=== PATIENT | male | born 1950 | race Caucasian/White ===

== ENCOUNTER 2017-03-27 16:12 | Emergency (ER) | payer OTHER ==
[~2017-03-27] VITALS: Ht 175.3 cm; Wt 109.8 kg
[~2017-03-27 16:12] MED LIST: ASPIRIN EC325 MG PO; ATENOLOL25 MG PO; COMBIVENT RESPIM4 GM INH; DOXYCYCLINE HY100 MG PO; IRON325 M1 PO; LEVOFLOXACIN500 MG PO; LISINOPRIL10 MG PO; METFORMIN HCL500 MG PO; OMEPRAZOLE20 MG PO; PREDNISONE20 MG PO; SIMVASTATIN40 MG PO; TAMSULOSIN HCL0.4 MG PO; WELLBUTRIN SR150 MG PO
[2017-03-27] MEDS ORDERED: ZITHROMAX250 MG PO (17:37)
--- NOTE | 2017-03-28 17:35 | EKG ---
[facility] [address] [facility] [place] [address] Signed Atrial fibrillation Rightward axis Abnormal ECG No previous ECGs available Confirmed by ANKIT HAYES MD ([id number]) on 03/28/2017 5:35:22 PM Electronically Signed By: ANKIT HAYES MD 03/28/17 1735 PATIENT NAME: FREDDY BLACKWELL Electrocardiogram DATE OF : 46 PHYSICIAN: ANKIT HAYES MD REPORT #: [id number] REPORT IS CONFIDENTIAL AND NOT TO BE RELEASED WITHOUT AUTHORIZATION
== END 2017-03-27 17:50 | disposition home or self-care (01) ==
LOC: ED 16:12
DX: R07.2 Precordial pain (principal); I11.0 Hypertensive heart disease with heart failure; I50.9 Heart failure, unspecified; I48.91 Unspecified atrial fibrillation; E11.9 Type 2 diabetes mellitus without complications; F17.200 Nicotine dependence, unspecified, uncomplicated; Z79.84 Long term (current) use of oral hypoglycemic drugs; Z90.49 Acquired absence of other specified parts of digestive tract; Z79.899 Other long term (current) drug therapy; Z79.82 Long term (current) use of aspirin
CPT/HCPCS: 71010; 80053; 83735; 83880; 84484; 85025; 93005; 93010; 94640; 99284

== ENCOUNTER 2017-07-20 20:37 | Observation (INO) | payer MEDICARE ==
[~2017-07-20] VITALS: Ht 175.3 cm; Wt 108.4 kg
[~2017-07-20 20:37] MED LIST changes: +ZITHROMAX250 MG PO
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
--- NOTE | 2017-07-21 00:53 | NUR ---
pt admitted at 2345 from ed. pt unconsious, hx assessment completed from previous records and family giving answers. Pt no pupil response, unconscious. moist, agonal breathing. Pt was incontinent of bowel, cleansed, excoriated andrew area present, excoriated areas noted under breast and skin folds. Mouth care done. SL patent. f/c in place, patent, draining clear yellow urine. Family in r
--- NOTE | 2017-07-21 01:49 | NUR ---
RECEIVED REPORT FROM SEWER PIPE OFFBEARER AT 0130. SCOPALAMIN PATCH IS BEHIND RIGHT EAR. ATROPIN WILL BE BROUGHT TO ME BY [employer] DEVELOPER. PT SEEMS COMFORTABLE AT THIS TIME.
--- NOTE | 2017-07-21 02:55 | NUR ---
ATROPIN SL 2DROPS AND ATIVAN IV 2MG HAS BEEN GIVEN. PT IS RESTING COMFORTABLE AGAIN. FAMILY IS AT BEDSIDE.
--- NOTE | 2017-07-21 04:19 | NUR ---
8MG OF MORPHINE IV WAS GIVEN, PT RR WAS 30 AND PT HAD DYSPNEA. WILL CONTINUE TO MONITOR.
--- NOTE | 2017-07-21 06:05 | NUR ---
DYSPNEA HAS NOT SUBSIDED SO FAR. PT HAS RECEIVED 16MG OF MORPHINE, 2 DROPS OF SL ATROPIN AND ATIVAN IV PER ORDER. FAMILY IS STILL AT BEDSIDE. TURNING, SUCTIONING AND MOUTH CARE HAVE BEEN PROVIDED SEVERAL TIMES THIS SHIFT.
--- NOTE | 2017-07-21 07:19 | NUR ---
RECIEVED BEDSIDE REPORT FROM PARAMJIT WOODS. PT RESTING, APPEARS COMFORTABLE, GURGLY SOUNDING. SUCTION AT BEDSIDE. FAMILY AT BEDSIDE. Q 2HR TURNS, ON ODD HRS.
--- NOTE | 2017-07-21 11:42 | NUR ---
ORAL SUCTION PREFORMED, SMALL AMOUNT OF SECRETIONS REMOVED. ORAL CARE DONE, LIP BALM APPLIED. PT NON-RESPONSIVE. FAMILY AT BEDSIDE. MS GIVEN, RR 33.
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
--- NOTE | 2017-07-21 13:43 | NUR ---
PT STILL VERY GURGGLY. SUCTIONED PT FOR MODERATE AMT. PRN ATROPINE DROPS GIVEN. FAMILY AT BEDSIDE.
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
--- NOTE | 2017-07-21 17:31 | NUR ---
COMFORT MEASURES ONLY. PRN MORPHINE FOR TACHYPENA, PAIN GIVEN X5. PRN ATROPINE GIVEN X3 FOR EXCESSIVE SECRETIONS. SUCTIONED MULTIPLE TIMES, UNABLE TO CLEAR ALL SECRETIONS, VERY GURGGLEY. Q 2 HRS TURNS/REPOSITIONS. NO GAG/SWALLOW REFLEX.
[2017-07-21] MEDS ORDERED: TYLENOL325 MG PO (17:32)
--- NOTE | 2017-07-21 18:16 | NUR ---
PT AT 1809. MD NOTIFIED, ASSOCIATE MEDIA DIRECTOR NOTIFIED, PASTORIAL CARE NOTIFIED. FAMILY IN ROOM.
--- NOTE | 2017-07-21 20:13 | NUR ---
ASSISTED [facility] [facility] [employer] [facility] TO [facility] PT NOW OFF FLOOR.
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
--- NOTE | 2017-07-21 20:25 | NUR ---
body removed from facility via stretcher, acompanied by pastor Theodore and [facility] staff
--- NOTE | 2017-07-21 22:59 | EKG ---
[facility] [address] [facility] [facility] [place] [address] Signed Atrial fibrillation with rapid ventricular response Right axis deviation T wave abnormality, consider inferior ischemia Abnormal ECG When compared with ECG of 27-MAR-2017 16:16, T wave inversion now evident in Inferior leads Confirmed by ANKIT HAYES MD ([id number]) on 07/21/2017 10:59:06 PM Electronically Signed By: ANKIT HAYES MD 07/21/17 2259 PATIENT NAME: FREDDY BLACKWELL Electrocardiogram DATE OF : 46 PHYSICIAN: ANKIT HAYES MD REPORT #: [id number] REPORT IS CONFIDENTIAL AND NOT TO BE RELEASED WITHOUT AUTHORIZATION
== END 2017-07-21 18:09 ==
LOC: ED 20:37 → MS 20:38
PROVIDERS: ADMIT Internal Medicine
DX: I62.01 Nontraumatic acute subdural hemorrhage (principal); R40.20 Unspecified coma; I62.03 Nontraumatic chronic subdural hemorrhage; Z51.5 Encounter for palliative care; F17.200 Nicotine dependence, unspecified, uncomplicated; R40.2432 Glasgow coma scale score 3-8, at arrival to emergency department; G93.6 Cerebral edema; E78.5 Hyperlipidemia, unspecified; I38 Endocarditis, valve unspecified; N40.0 Benign prostatic hyperplasia without lower urinary tract symptoms; I48.91 Unspecified atrial fibrillation; I10 Essential (primary) hypertension; E11.9 Type 2 diabetes mellitus without complications; J43.9 Emphysema, unspecified; Z66 Do not resuscitate; Z86.19 Personal history of other infectious and parasitic diseases; Z79.2 Long term (current) use of antibiotics; Z79.899 Other long term (current) drug therapy; Z79.82 Long term (current) use of aspirin; Z79.84 Long term (current) use of oral hypoglycemic drugs
CPT/HCPCS: 31500; 36415; 36600; 51702; 70450; 71010; 80053; 81001; 82803; 84484; 85025; 93005; 93010; 94002; 96374; 96375; 96376; 99285; G0378; G0480; J2060; J2270; J2704